=== PATIENT | female | born 1945 | race Two or more races ===

== ENCOUNTER 2023-04-18 10:28 | Emergency (ER) | payer OTHER ==
[~2023-04-18] VITALS: Ht 170.2 cm; Wt 103.4 kg
[2023-04-18] MEDS ORDERED: ZESTRIL40 M1 PO (10:56)
[2023-04-18] MEDS ORDERED: FUROSEMIDE20 MG PO (10:58)
[2023-04-18] MEDS ORDERED: METFORMIN HCL850 MG PO (10:59)
[2023-04-18] MEDS ORDERED: GABAPENTIN100 M2 PO (10:59)
== END 2023-04-18 17:25 | disposition home or self-care (01) ==
LOC: ER 10:28
DX: I82.4Z2 Acute embolism and thrombosis of unspecified deep veins of left distal lower extremity (principal); I87.2 Venous insufficiency (chronic) (peripheral); E11.65 Type 2 diabetes mellitus with hyperglycemia; Z79.84 Long term (current) use of oral hypoglycemic drugs